=== PATIENT | male | born 1960 | race Caucasian/White ===

== ENCOUNTER 2020-11-25 11:07 | Emergency (ER) | payer OTHER ==
--- NOTE | 2020-11-25 11:12 | ERPHSYRPT ---
- History of Present Illness Time Seen by Provider: 11/25/20 11:12 Historian: patient Exam Limitations: no limitations Physician History: This is a 60-year-old white male who is a chronic smoker of cigarettes and is on a couple of inhalers for presumed COPD. Yesterday, patient was having some left-sided sharp chest pain. It was in the lower anterior ribs. Today he n oticed that he has resolution of his chest pain but feels more short of breath than usual. Is worse with exertion. Patient does have a cardiac stress test scheduled for December 01, 2020. He has never been diagnosed with any heart disease. He does have gastroesophageal reflux disease and is on omeprazole for this. He also has chronic back pain and takes hydrocodone for this. Patient arrives today short of breath with a room air oxygenation of 98 to 99%. Timing/Duration: yesterday Location: other (Left lower anterior lateral ribs.) Severity of Pain-Max: mild Severity of Pain-Current: none Associated Symptoms: shortness of breath Prior Chest Pain/Cardiac Workup: no prior cardiac workup Nitro Today/Relief: no nitro taken today Aspirin Treatment Today: no aspirin today Allergies/Adverse Reactions: No Known Drug Allergies Allergy (Unverified 11/25/20 11:29) Travel Risk - International Travel Have you traveled outside of the country in past 3 weeks: No - Coronavirus Screening Are you exhibiting any of the following symptoms?: No Close contact with a COVID-19 positive Pt in past 14-21 Days: No - Review of Systems Constitutional: No Symptoms Eyes: No Symptoms Ears, Nose, & Throat: No Symptoms Respiratory: Dyspnea, Dyspnea on Exertion (ALEGRE) Cardiac: No Symptoms Abdominal/Gastrointestinal: No Symptoms Genitourinary Symptoms: No Symptoms Musculoskeletal: No Symptoms Skin: No Symptoms Neurological: No Symptoms Psychological: No Symptoms Endocrine: No Symptoms Hematologic/Lymphatic: No Symptoms Immunological/Allergic: No Symptoms All Other Systems: Reviewed and Negative - Past Medical History Pertinent Past Medical History: Yes Neurological History: Stroke Cardiac History: No Pertinent History Respiratory History: No Pertinent History Endocrine Medical History: No Pertinent History Musculoskeletal History: No Pertinent History Other Medical History: TIA close to a year ago. - Past Surgical History Past Surgical History: Yes - Nursing Vital Signs Nursing Vital Signs: Initial Vital Signs Temperature 97.4 F 11/25/20 11:08 Pulse Rate 89 11/25/20 11:08 Respiratory Rate 26 H 11/25/20 11:08 Blood Pressure 174/106 11/25/20 11:08 O2 Sat by Pulse Oximetry 99 11/25/20 11:08 Pain Scale Pain Intensity 0 - Physical Exam General Appearance: mild distress, alert, anxiety Eye Exam: PERRL/EOMI, eyes nml inspection Ears, Nose, Throat Exam: normal ENT inspection, moist mucous membranes Neck Exam: normal inspection, non-tender, supple, full range of motion Respiratory Exam: normal breath sounds, chest tenderness, lungs clear Cardiovascular Exam: regular rate/rhythm, normal heart sounds, normal peripheral pulses Gastrointestinal/Abdomen Exam: soft, normal bowel sounds, tenderness Rectal Exam: not done Back Exam: normal inspection, normal range of motion, No CVA tenderness, No vertebral tenderness Extremity Exam: normal inspection, normal range of motion, pelvis stable Neurologic Exam: alert, oriented x 3, cooperative, [place] II-XII nml as tested, normal mood/affect, nml cerebellar function, nml station & gait, sensation nml Skin Exam: normal color, warm, dry Lymphatic Exam: No adenopathy SpO2 Interpretation: normal O2 Delivery: Room Air - Course Nursing assessment & vital signs reviewed: Yes EKG Interpreted by Me: RATE (83), Sinus Rhythm, NORMAL AXIS, NORMAL INTERVALS, NORMAL QRS, NORMAL ST-T, Other (No acute ischemic changes. No comparison EKG available) Ordered Tests: Active Orders 24 hr Category Date Time Status Project Development Manager STAT Care 11/25/20 11:15 Active EKG-ER Only STAT Care 11/25/20 11:15 Active IV Insertion STAT Care 11/25/20 11:15 Active Pulse Oximetry (ED) STAT Care 11/25/20 11:15 Active Re-Check Vital Signs STAT Care 11/25/20 11:15 Active CHEST 1 VIEW (PORTABLE) Stat Exams 11/25/20 11:16 Ordered CBC W DIFF Stat Lab 11/25/20 11:15 Completed CMP Stat Lab 11/25/20 11:15 Completed D-DIMER QUANTITATIVE Stat Lab 11/25/20 11:15 Completed NT PRO BNP Stat Lab 11/25/20 11:15 Completed PROTIME WITH INR Stat Lab 11/25/20 11:15 Completed TROPONIN Q3H Lab 11/25/20 11:15 Completed TROPONIN Q3H Lab 11/25/20 14:17 Completed TROPONIN Q3H Lab 11/25/20 17:15 Ordered TROPONIN Q3H Lab 11/25/20 20:15 Ordered TROPONIN Q3H Lab 11/25/20 23:15 Ordered Medication Summary Discontinued Medications Generic Name Dose Route Start Last Admin Trade Name Heriberto PRN Reason Stop Dose Admin Aspirin 324 mg 11/25/20 11:15 11/25/20 11:21 Baby Aspirin 81 Mg Chew PO 11/25/20 11:16 324 mg STAT ONE Administration Methylprednisolone Sodium Succinate 125 mg 11/25/20 12:17 11/25/20 12:34 Solu-Medrol 125 Mg IV 11/25/20 12:18 125 mg STAT ONE Administration Methylprednisolone Sodium Succinate Confirm 11/25/20 12:30 Solu-Medrol 125 Mg Administered 11/25/20 12:31 Dose 125 mg .ROUTE .STK-MED ONE Lab/Rad Data: Laboratory Result Diagrams 11/25/20 11:15 11/25/20 11:15 Laboratory Results 11/25/20 11/25/20 11/25/20 Range/Units 14:17 11:15 11:15 WBC (4.0-10.5) K/mm3 RBC (4.1-5.6) M/mm3 Hgb (12.5-18.0) gm/dl Hct (42-50) % MCV (78-100) fl MCH (26-32) pg MCHC (32-36) g/dl RDW (11.5-14.0) % Plt Count (150-450) K/mm3 MPV (7.5-11.0) fl Gran % (36.0-66.0) % Eos # (Auto) (0-0.5) Absolute Lymphs (auto) (1.0-4.6) Absolute Monos (auto) (0.0-1.3) Lymphocytes % (24.0-44.0) % Monocytes % (0.0-12.0) % Eosinophils % (0.00-5.0) % Basophils % (0.0-0.4) % Absolute Granulocytes (1.4-6.9) Basophils # (0-0.4) PT 11.1 (8.83-12.87) SECONDS INR 0.98 (0.8-3.0) D-Dimer 517 H* (215-500) ng/mL Sodium 136 L (137-145) mmol/L Potassium 4.7 (3.5-5.1) mmol/L Chloride 105 (98-107) mmol/L Carbon Dioxide 25 (22-30) mmol/L Anion Gap 10.6 (5-15) MEQ/L BUN 10 (9-20) mg/dL Creatinine 0.94 (0.66-1.25) mg/dL Estimated GFR > 60.0 ML/MIN Glucose 62 L (74-106) mg/dL Calcium 9.7 (8.4-10.2) mg/dL Total Bilirubin 0.40 (0.2-1.3) mg/dL AST 35 (17-59) U/L ALT 29 (0-50) U/L Alkaline Phosphatase 82 (38-126) U/L Troponin I < 0.012 (0.000-0.034) ng/mL NT-Pro-B Natriuret Pep 25.7 (0-900) pg/mL Serum Total Protein 8.2 (6.3-8.2) g/dL Albumin 4.5 (3.5-5.0) g/dL 11/25/20 11/25/20 Range/Units 11:15 11:15 WBC 11.0 H (4.0-10.5) K/mm3 RBC 5.58 (4.1-5.6) M/mm3 Hgb 17.1 (12.5-18.0) gm/dl Hct 52.4 H (42-50) % MCV 93.9 (78-100) fl MCH 30.6 (26-32) pg MCHC 32.6 (32-36) g/dl RDW 12.7 (11.5-14.0) % Plt Count 345 (150-450) K/mm3 MPV 10.0 (7.5-11.0) fl Gran % 61.2 (36.0-66.0) % Eos # (Auto) 0.52 H (0-0.5) Absolute Lymphs (auto) 2.93 (1.0-4.6) Absolute Monos (auto) 0.74 (0.0-1.3) Lymphocytes % 26.7 (24.0-44.0) % Monocytes % 6.8 (0.0-12.0) % Eosinophils % 4.7 (0.00-5.0) % Basophils % 0.6 (0.0-0.4) % Absolute Granulocytes 6.70 (1.4-6.9) Basophils # 0.07 (0-0.4) PT (8.83-12.87) SECONDS INR (0.8-3.0) D-Dimer (215-500) ng/mL Sodium (137-145) mmol/L Potassium (3.5-5.1) mmol/L Chloride (98-107) mmol/L Carbon Dioxide (22-30) mmol/L Anion Gap (5-15) MEQ/L BUN (9-20) mg/dL Creatinine (0.66-1.25) mg/dL Estimated GFR ML/MIN Glucose (74-106) mg/dL Calcium (8.4-10.2) mg/dL Total Bilirubin (0.2-1.3) mg/dL AST (17-59) U/L ALT (0-50) U/L Alkaline Phosphatase (38-126) U/L Troponin I < 0.012 (0.000-0.034) ng/mL NT-Pro-B Natriuret Pep (0-900) pg/mL Serum Total Protein (6.3-8.2) g/dL Albumin (3.5-5.0) g/dL - Progress Progress: improved, re-examined Air Movement: good Progress Note: 11/25/20 14:55 Chest x-ray shows no acute cardiopulmonary process. Blood Culture(s) Obtained: No Antibiotics given: No Counseled pt/family regarding: lab results, diagnosis, need for follow-up, rad results - Departure Departure Disposition: Home Clinical Impression: COPD exacerbation Condition: Stable Critical Care Time: No Referrals: STANISLAV ROJAS MD [Primary Care Provider] - Instructions: Chronic Obstructive Pulmonary Disease Additional Instructions: Stop smoking cigarettes. Use your inhalers as prescribed. Take your medication as prescribed. Follow-up with Dr. Rojas and his office by phone on Friday, November 27, 2020 for further management. Return to the emergency department if symptoms recur/worsen Prescriptions: Prednisone 10 mg [Deltasone 10 mg] 10 mg PO TID #12 tablet
[2020-11-25] MEDS ORDERED: BABY ASPIRIN 81 MG CHEW PO ONE (11:15)
[2020-11-25 11:35] LABS: BASOPHIL % 0.6 % (0.0-0.4); Basophil (Absolute #) 0.07 (0-0.4); Eosinophil % 4.7 % (0.00-5.0); Eosinophil (Absolute #) 0.52 (0-0.5); Hematocrit 52.4 % (42-50); Hemoglobin 17.1 gm/dl (12.5-18.0); Lymphocyte (Absolute #) 2.93 (1.0-4.6); Lymphocytes % 26.7 % (24.0-44.0); Mean Cell Volume 93.9 fl (78-100); Mean Corpuscular Hemoglobin 30.6 pg (26-32); Mean Corpuscular Hgb Concent. 32.6 g/dl (32-36); Monocyte (Absolute #) 0.74 (0.0-1.3); Monocytes % 6.8 % (0.0-12.0); Neutrophil % 61.2 % (36.0-66.0); Platelet Count 345 K/mm3 (150-450); Red Blood Count 5.58 M/mm3 (4.1-5.6); Red Cell Distribution Width 12.7 % (11.5-14.0)
[2020-11-25 11:41] LABS: INR 0.98 (0.8-3.0); PROTIME 11.1 SECONDS (8.83-12.87)
[2020-11-25 11:51] LABS: ALBUMIN 4.5 g/dL (3.5-5.0); ALKALINE PHOSPHATASE 82 U/L (38-126); ANION GAP 10.6 MEQ/L (5-15); BLOOD UREA NITROGEN 10 mg/dL (9-20); CHLORIDE 105 mmol/L (98-107); Calcium 9.7 mg/dL (8.4-10.2); Carbon Dioxide 25 mmol/L (22-30); Creatinine 1 0.94 mg/dL (0.66-1.25); EST GLOMERULAR FILTRATION RATE > 60.0 ML/MIN; Glucose 62 mg/dL (74-106); NT PRO BNP 25.7 pg/mL (0-900); Potassium 4.7 mmol/L (3.5-5.1); SGOT/AST 35 U/L (17-59); SGPT/ALT 29 U/L (0-50); SODIUM 136 mmol/L (137-145); Total Protein 8.2 g/dL (6.3-8.2)
[2020-11-25] MEDS ORDERED: solu-MEDROL 125 MG IV ONE (12:17)
[2020-11-25] MEDS ORDERED: solu-MEDROL 125 MG ONE (12:30)
[2020-11-25 14:44] VITALS: BP 165/100; O2SAT 98
[2020-11-25 15:03] VITALS: PULSE 85
--- NOTE | 2020-11-25 20:14 | XRAY ---
Indication: Chest pain. Comparison: February 19, 2016. Portable chest remains hyperinflated and clear. Heart is not enlarged with stable incidental perihilar calcified nodes. Bony thorax intact with minimal degenerative changes. No new/acute findings. Impression: Continued nonacute hyperinflated chest with chronic features.
== END 2020-11-25 15:09 | disposition home or self-care (01) ==
LOC: ED 11:07
DX: J44.1 Chronic obstructive pulmonary disease with (acute) exacerbation (principal); R07.89 Other chest pain; K21.9 Gastro-esophageal reflux disease without esophagitis; Z79.891 Long term (current) use of opiate analgesic; Z79.899 Other long term (current) drug therapy; R06.02 Shortness of breath; R06.00 Dyspnea, unspecified; F17.210 Nicotine dependence, cigarettes, uncomplicated
CPT/HCPCS: 36000; 36415; 71045; 80053; 83880; 84484; 85025; 85379; 85610; 93005; 93041; 94760; 96374; 99284; J2930; A9270-GY

== ENCOUNTER 2024-05-20 06:12 | Day surgery (SDC) | payer MEDICARE, OTHER ==
[2024-05-20] MEDS: Lactated Ringers 1,000 ML IV SCH (06:41)
[2024-05-20] MEDS ORDERED: DIPRIVAN 200 MG/20 ML IV ONE (07:01)
[2024-05-20] MEDS ORDERED: Versed 2 MG/2 ML Injection ONE (07:06)
[2024-05-20 08:05] VITALS: TEMP 97.3
[2024-05-20 08:19] VITALS: BP 133/90; PULSE 70; RESP 16; O2SAT 94
--- NOTE | 2024-05-21 11:02 | OP ---
SURGERY DATE/TIME: 05/20/2024 [id number] - [id number] PREOPERATIVE DIAGNOSIS: Positive Cologuard. POSTOPERATIVE DIAGNOSIS: Colon polyps x7. PROCEDURE: Colonoscopy. SURGEON: Binh Auguste MD ANESTHESIA: MAC by Gurdeep Matthews CRNA ESTIMATED BLOOD LOSS: Minimal. SPECIMENS: There is a hot forceps ascending colon polyp, hot forceps descending colon polyp, 2 large sigmoid polyps that were snared and 3 distal sigmoid colon polyps removed with the hot forceps. DESCRIPTION OF PROCEDURE AND FINDINGS: After informed written consent was obtained, the patient was taken to the endoscopy suite. He was placed in the left lateral decubitus position and anesthesia was titrated to the desired level of consciousness. Digital rectal exam showed normal sphincter tone and no internal lesions. Scope was inserted in the rectum and sequentially the entire colonic mucosa was traversed. Level of cecum was reached and verified with direct visualization of the ileocecal valve. Upon withdrawal, there was a small ascending colon polyp which was grasped with a forceps, cauterized and removed in its entirety with no bleeding and sent for pathology. Upon further withdrawal, in the proximal descending colon there was likewise a small sessile polyp which was grasped with forceps and removed with cautery with no bleeding. At 20 cm scope depth, there was a large pedunculated sigmoid colon polyp which was encircled with snare and removed hot from the base with good removal and good hemostasis following removal. It was too large to suction through the scope, so the scope was removed with the polyp attached to the end and it was sent for pathology. Likewise, at 15 cm scope depth, there was another large pedunculated sigmoid colon polyp which was snared with good hemostasis and retrieval of the lesion from the end of the scope. Prior to withdrawal, the scope was then reinserted and there were 3 small distal sigmoid polyps that were flat that were removed with a hot forceps with good hemostasis. Prior to withdrawal, retroflexion showed no obvious internal lesions. Scope was removed and patient was transferred to the recovery room in good condition. He has been advised to follow up in a week for pathology results for instructions on followup exam at that time.
== END 2024-05-20 08:20 | disposition home or self-care (01) ==
LOC: SDC 06:12
PROVIDERS: ATTEND Family Medicine
DX: D12.2 Benign neoplasm of ascending colon (principal); D12.4 Benign neoplasm of descending colon; D12.5 Benign neoplasm of sigmoid colon; R19.5 Other fecal abnormalities
CPT/HCPCS: 93005; J2250; J2704